=== PATIENT | female | born 1980 | race Caucasian/White ===

== ENCOUNTER 2018-11-10 05:38 | Day surgery (SDC) | payer OTHER ==
[~2018-11-10] VITALS: Ht 170.2 cm; Wt 152.0 kg
[~2018-11-10 05:38] MED LIST: BENZTROPINE MES1 MG PO; CLARITIN10 MG PO; CLONAZEPAM 1 MG1 M1 PO; DEPAKOTE ER500 MG PO; DEXILANT60 MG PO; HYDROXYZINE HCL25 M2 PO; LOSARTAN POTASS50 MG PO; MAGOX 400400 MG PO; MEDROXYPRO150 MG/1 M IM; MINIPRESS2 MG PO; MUCINEX D ER 61 EACH PO; NAPROSYN500 M1 PO; OLANZAPINE20 MG PO; POTASSIUM20 PO; PREDNISONE 10 M10 MG PO; PROVIGIL 200 M200 MG PO; SINGULAIR 10 MG10 M1 PO; TOPAMAX50 MG PO; ZANTAC 150MG T150 MG PO
--- NOTE | 2018-11-10 08:06 | H ---
[facility] [place] [address] HISTORY AND PHYSICAL Name: KALEY MALLOY Room #: 150-7 [facility]..#: [id number] Admission: 11/10/18 ������������������ Attend Phys: Salbador Clements MD Discharge: ������������������ Date of : 80 Report #: [id number] THIS REPORT FOR: //name// CC: Simone Clements DATE OF SERVICE: 11/10/2018 HISTORY OF PRESENT ILLNESS: The patient has sinus problems and allergy problems. She underwent sinus surgery several years ago, but continues to have problems, hoarseness, postnasal drainage and nasal congestion. A recent CT scan shows posterior openings into the right maxillary sinus, but her anterior opening is not patent and she has maxillary mucous membrane thickening. She has scarring in the left maxillary antrum with a scar band between the middle turbinate and lateral wall of the nose. She does not have openings into the ethmoid sinuses. Her frontal sinuses and sphenoid sinuses are clear. PAST MEDICAL HISTORY: Otherwise, significant for high blood pressure and bipolar disorder. MEDICATIONS: Include losartan, Singulair, Dexilant, Zantac, Claritin, topiramate, naproxen, potassium, Mucinex, Depakote, Zyprexa, clonazepam, Provigil. ALLERGIES: SHE IS ALLERGIC TO DOXYCYCLINE, KEFLEX, SULFA. PHYSICAL EXAMINATION: She has a deviated nasal septum into the middle meatus on the right side and anteriorly and low on the left. She had purulent crusting in the middle meatuses on both sides. IMPRESSION: Deviated nasal septum, nasal airway obstruction, chronic maxillary and ethmoid sinusitis. PLAN: Nasal septoplasty, endoscopic bilateral maxillary antrostomies and complete ethmoidectomies. ��������������������������������������������� <ELECTRONICALLY SIGNED> ���������������������������������������� By: Salbador Clements MD ��������������������������������������������� 11/10/18 [id number] [id number] Salbador Clements MD /nt
[2018-11-10 08:51] VITALS: BP 130/63
[2018-11-10 11:59] VITALS: BP 130/63
--- NOTE | 2018-11-10 19:30 | O ---
[facility] [place] [address] OPERATIVE REPORT Name: KALEY MALLOY Room #: DEP [facility]..#: [id number] Admission: 11/10/18 ������������������ Attend Phys: Salbador Clements MD Discharge: 11/10/18 ������������������ Date of : 80 Report #: [id number] THIS REPORT FOR: //name// CC: Simone Clements DATE OF SERVICE: 11/10/2018 PREOPERATIVE DIAGNOSES: Chronic maxillary and ethmoid sinusitis with deviated nasal septum and nasal airway obstruction. POSTOPERATIVE DIAGNOSES: Chronic maxillary and ethmoid sinusitis with deviated nasal septum and nasal airway obstruction. OPERATIVE PROCEDURE: Nasal septoplasty, endoscopic bilateral revision maxillary antrostomies and complete ethmoidectomies. ANESTHESIA: General by laryngeal mask. DESCRIPTION OF PROCEDURE: The patient was taken to the operating room and placed in supine position. General anesthesia was induced by laryngeal mask. Once adequate general anesthesia was obtained, local nasal anesthesia was induced by submucoperiosteal injection of 1% lidocaine with 1:100,000 epinephrine and topical application of cocaine solution. The patient was then draped in a sterile manner. The patient had a nasal septal deviation to the right side with a septal spur along the floor on the left. A hemitransfixion incision was placed on the right side of the nose and the mucoperichondrium and mucoperiosteum was elevated off the septum. The cartilage was incised from the bony cartilaginous junction and a portion of cartilage and bone was removed from the midportion of the septum. The septal spur along the floor consisted of hypertrophic cartilage and a fracture of the maxillary crest. The cartilage was removed as a long strip and the maxillary crest was infractured and rongeured. After these maneuvers, the septum sat more in the midline. The hemitransfixion incision was then closed with 4-0 chromic suture and a 4-0 plain mattress suture was placed as well. The nasal endoscope was used to visualize the left nasal cavity. There was a scar band between the middle turbinate and lateral wall of the nose that was completely blocking the middle meatus. This was taken down with a Erhard elevator and the microdebrider. The uncinate process was removed using the microdebrider and the natural opening of the maxillary sinus was located. It was enlarged in a posterior and inferior manner by removing the soft fontanelle. An ethmoidectomy was performed by removing the ethmoidal bulla and then following the ethmoid air cells back to and through the basal lamella and then forward along the lamina papyracea and fovea ethmoidalis to complete the ethmoidectomy anteriorly. Surgiflo was placed into the ethmoid cavity and middle meatus for hemostasis. The exact same procedure was performed on the right side. There was scarring on the right side as well. The patient [address] [address] OPERATIVE REPORT Name: KALEY MALLOY Room #: DEP [facility] [place]#: [id number] Admission: 11/10/18 ������������������ Attend Phys: Salbador Clements MD Discharge: 11/10/18 ������������������ Date of : 80 Report #: [id number] tolerated the procedure well. Blood loss approximately 50 mL. The patient was then awoken and taken to the recovery room in stable condition for postoperative monitoring. ��������������������������������������������� <ELECTRONICALLY SIGNED> ���������������������������������������� By: Salbador Clements MD ��������������������������������������������� 11/10/18 1930 [id number] Salbador Clements MD /nt
== END 2018-11-10 13:00 | disposition home or self-care (01) ==
LOC: OR 05:38 → TBA 05:39 → OR 10:49
DX: J34.2 Deviated nasal septum (principal); J32.0 Chronic maxillary sinusitis; J32.2 Chronic ethmoidal sinusitis; J34.89 Other specified disorders of nose and nasal sinuses; I10 Essential (primary) hypertension; J43.9 Emphysema, unspecified; F31.9 Bipolar disorder, unspecified; K21.9 Gastro-esophageal reflux disease without esophagitis; Z79.899 Other long term (current) drug therapy; Z98.890 Other specified postprocedural states; Z88.2 Allergy status to sulfonamides; Z88.8 Allergy status to other drugs, medicaments and biological substances
CPT/HCPCS: 50010; 50101; 50286; 50386; 50398; 50573; 52290; 52291; 62110; 62900; 70005